=== PATIENT | female | born 1985 | race Native Hawaiian/Other Pacific Islander ===

== ENCOUNTER 2018-04-28 20:18 | Emergency (ER) | payer SELFPAY ==
[2018-04-28 20:28] VITALS: BP 126/82; PULSE 80; RESP 16; TEMP 98.4; O2SAT 100
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
== END 2018-04-28 21:51 | disposition home or self-care (01) ==
LOC: H.ER 20:18
DX: S09.90XA Unspecified injury of head, initial encounter (principal); Y04.0XXA Assault by unarmed brawl or fight, initial encounter; Y99.0 Civilian activity done for income or pay